=== PATIENT | female | born 1945 | race Caucasian/White ===

== ENCOUNTER 2019-02-28 17:34 | Emergency (ER) | payer MEDICARE, MEDICAID ==
[~2019-02-28] VITALS: Ht 152.4 cm; Wt 34.0 kg
[~2019-02-28 17:34] MED LIST: NORCO 5-325 TA1 EACH PO
[2019-02-28] MEDS ORDERED: NORCO 5-325 TA1 EACH PO (18:21)
[2019-02-28] MEDS ORDERED: ULTRA-LIGHT RO1 EACH MISC (18:21)
== END 2019-02-28 18:43 | disposition home or self-care (01) ==
LOC: ED 17:34
DX: S82.142A Displaced bicondylar fracture of left tibia, initial encounter for closed fracture (principal); W18.39XA Other fall on same level, initial encounter; F17.200 Nicotine dependence, unspecified, uncomplicated
CPT/HCPCS: 73560; 99283-25

== ENCOUNTER 2019-03-16 09:00 | Day surgery (SDC) | payer MEDICARE, MEDICAID ==
[~2019-03-16] VITALS: Ht 152.4 cm; Wt 34.9 kg
--- NOTE | 2019-03-16 06:19 | NUR ---
PT CALLED REQUESTING TO TAKE TYLENOL. GIANA MCCORMACK CRNA APPROVED THIS. PT CALLED BACK AND TOLD SHE CAN TAKE TYLENOL WITH A SMALL SIP OF WATER.
[~2019-03-16 09:00] MED LIST changes: +ULTRA-LIGHT RO1 EACH MISC
--- NOTE | 2019-03-16 13:10 | NUR ---
03/16/19 1310 Loretta Franco 1235 PT ARRIVED IN PACU AWAKE WITH NO C/O'S. BREG BRACE ON L LEG. ICE PLACED ON ARRIVAL. 1247 OXYGEN REMOVED. SATS 94% ON RA. ENCOURAGED COUGH, DEEP BREATHING. 1254 C/O L KNEE PAIN 4/10. FENTANYL 25MCG GIVEN IVP. 1300 NO CHANGE IN PAIN LEVEL. FENTANYL 25MCG GIVEN IVP. REPOSITIONED ICE PACK FOR COMFORT. 1310 NO CHANGE IN PAIN LEVEL. C/O L KNEE PAIN.
--- NOTE | 2019-03-16 14:15 | NUR ---
PT ARRIVED TO FLOOR VIA BED. PT IS AWAKE AND ALERT, VERY HUNGRY AND THIRSTY. TOLERATED JELLO WELL, ORDERED HER SOUP. ICE PACKED PLACED ON LEFT LEG, LEG ELEVATED ON PILLOWS. ZARI WRAP IS CLEAN AND DRY. PT HAD SMALL BM IN PACU. NO NAUSEA. NO ITCHING. WILL OFFER PO PAIN MEDS ONCE LUNCH ARRIVES. NOTIFIED CARMINA ARREGUIN THAT PT WAS IN HER ROOM FOR DIETARY CONSULT.
--- NOTE | 2019-03-16 14:15 | NUR ---
jethro notified of nutrition consult order for patient at this time
--- NOTE | 2019-03-16 17:07 | NUR ---
PT AWAKE AND ALERT. STATES HER PAIN IS WELL CONTROLLED AND WE "ARE TAKING GREAT CARE OF HER." PT HAS ORDERED DINNER.
--- NOTE | 2019-03-16 17:51 | NUR ---
PT ARRIVED TO FLOOR AWAKE AND ALERT FROM PACU. PT'S PAIN WELL CONTROLLED BY PRN PO NORCO. PT UP TO BSC TO VOID/STOOL. PT TOLERATING REG DIET WELL. TOLERATING PO FLUIDS WELL. BRACE ON LEFT LEG. ZARI WRAP, MEPLEX, ABD PAD UNDER ZARI IS C/D/I. TOE TOUCH WB ON LEFT LEG. FORGETFUL, REDIRECTS EASILY. ANXIOUS TO GO HOME. DIETIAN CONSULT COMPLETE, GIVEN OPTIONS FOR HIGHER CALORIE, HIGH PROTIEN. ICE PACKS PLACED.
--- NOTE | 2019-03-16 19:00 | NUR ---
BEDSIDE REPORT RECEIVED FROM OFFGOING RNPAUL. PT TALKING ON PHONE, DOES NOT PARTICIPATE IN REPORT. CALL LIGHT IN REACH.
--- NOTE | 2019-03-16 21:05 | NUR ---
PT ASSESSMENT COMPLETE. PT RATES PAIN 5/10 TO LLE, GOAL FOR 2/10, REQUESTS PAIN MEDICATION. PRN NORCO ADMINISTERED. PT DENIES NAUSEA OR SOB. LUNG SOUNDS DIM IN BILATERAL BASES. PT DENIES COUGH. IS EDUCATION PROVIDED, PT DEMONSTATES APPROPRIATE USE. LLE WITH DRESSING C/D/I. ZARI WRAP AND BRACE IN PLACE. BRUISING PRESENT TO L FOOT AND TOES. PT EXPERIENCING CONTINUED NUMBNESS TO OUTTER ASPECT OF L FOOT. CMS INTACT TO OTHER EXTREMITIES. SCD TO RLE. ICE TO LLE. LLE ELEVATED ON PILLOW. PT ICE WATER REFILLED AND PUDDING PROVIDED. PT ASKING WHAT TIME SHE CAN MAYA HOME TOMORROW. POST OP EDUCATION PROVIDED, QUESTIONS ANSWERED. DENIES FURTHER NEEDS AT THIS TIME. CALL LIGHT IN REACH.
--- NOTE | 2019-03-16 23:05 | NUR ---
PT RESTING IN BED WITH EYES CLOSED, MOUTH OPEN. PT DOES NOT WAKE WHILE NEWCOMER HOSTESS IN DOORWAY. PT APPEARS TO BE SLEEPING. RESPIRATIONS EVEN AND UNLABORED. CALL LIGHT IN REACH.
--- NOTE | 2019-03-16 23:48 | NUR ---
V/S AND I&O TAKEN AND RECORDED. PATIENT DENIES ANY NEEDS AT THE TIME. SIDE TABLE AND CALL LIGHT WITHIN REACH.
--- NOTE | 2019-03-17 01:35 | NUR ---
PT ASSESSMENT COMPLETE. PT FOUND IN ROOM, TEARFUL. STATES "I HAVE BEEN TRYING TO CALL FOR AN HOUR". CALL LIGHT AND BED FOUND TO BE UNPLUGGED FROM WALL. INTERNATIONAL LOGISTICS COORDINATOR PLUGGED BOTH BED AND CALL LIGHT INTO WALL OUTLET, AND BOTH ARE FUNCTIONING APPROPRIATELY AT THIS TIME. INTERNATIONAL LOGISTICS COORDINATOR APOLOGIZES TO PT. PT STATES "IT'S NOT JUST THIS, IT IS THE WHOLE SITUATION" REGARDING FALLING AND REQUIRING SURGERY. SHE STATES "I JUST NEEDED A GOOD CRY". PT REPORTS PAIN, RATES 7/10. PRN NORCO ADMINISTERED. PT DENIES NAUSEA OR SOB. LUNG SOUNDS DIM IN BILATERAL BASES. PT DENIES COUGH. LLE WITH 1 + PITTING EDEMA PRESENT. DRESSING C/D/I. PT REPORTS CONTINUED SLIGHT NUMBNESS TO L FOOT, STATES IT IS IMPROVED FROM EARLIER. BRUISING TO L FOOT UNCHANGED FROM PREVIOUS ASSESSMENT. BRACE AND ICE TO LLE. LLE ELEVATED ON PILLOW. SCD TO RLE. PT PROVIDED WITH CRACKERS AND ICE WATER. PT ASSISTED TO BSC AND BACK TO BED WITH 1 PA AND FWW. PT TOLERATED WELL. PT DENIES FURTHER NEEDS AT THIS TIME. CALL LIGHT WITHIN REACH AND TESTED FOR FUNCTION.
--- NOTE | 2019-03-17 02:30 | NUR ---
PT RESTING IN BED FLAT ON BACK WITH EYES CLOSED AND MOUTH OPEN. GLASSES REMAIN ON PT. RESPIRATIONS EVEN AND UNLABORED. PT DOES NOT WAKE WHILE TOWER LOADER OPERATOR IN ROOM. CALL LIGHT IN REACH.
--- NOTE | 2019-03-17 02:35 | NUR ---
MOISTURIZING LOTION AND CHAL LIP BALM GIVEN PER PATIENT'S REQUEST.
--- NOTE | 2019-03-17 04:31 | NUR ---
PT RESTING IN BED WITH EYES CLOSED, BREATHING THROUGH HER OPENED MOUTH. RESPIRATIONS ARE EVEN AND UNLABORED. PT APPEARS TO BE SLEEPING. DOES NOT WAKE WHILE EARTH SCIENCE PROFESSOR IN ROOM. CALL LIGHT IN REACH.
--- NOTE | 2019-03-17 05:03 | NUR ---
PT UTILIZES CALL LIGHT, REQUESTS TO USE THE BATHROOM. PT ASSISTED TO BSC AND BACK TO BED WITH 1PA. PT TRANSFERED VERY WELL WITH MINIMAL ASSISTANCE. PT ASSESSMENT COMPLETE. PT REPORTS THAT PAIN IS WELL CONTROLLED 11/27. DENIES SOB OR NAUSEA. LUNG SOUNDS DIM IN BILATERAL BASES. PT DENIES COUGH. DRESSING TO E C/D/I. LEG BRACE AND ICE TO E. 1+ PITTING EDEMA PRESENT TO E. SCD PRESENT TO RLE. PT REPORTS WHILE UP TO [facility] NUMBNESS TO PERIAREA THAT SHE HAD NOT PREVIOUSLY NOTICED. STATES THAT PARTS OF HER L FOOT CONTINUE TO BE NUMB WELL. PT THANKFUL FOR CARE. PT BEGINS TO TALK ABOUT HER DOG, BECOMES TEARFUL AND STATES "IT'S SPRING AND I WON'T BE ABLE TO WALK MY DOG. I JUST NEED TO HAVE A GOOD CRY". PT ICE WATER REFILLED, DENIES OTHER NEEDS AT THIS TIME. CALL LIGHT IN REACH.
--- NOTE | 2019-03-17 05:07 | NUR ---
PT RESTED OFF AND ON THIS SHIFT. NORCO FOR PAIN X 2 THIS SHIFT. LUNG SOUNDS DIM IN BASES. IS AT BEDSIDE. BRUISING TO L FOOT/TOES LLE DRESSING: ABD, ZARI WRAP, C/D/I. LEG BRACE AND ICE TO LLE. SCD TO RLE. TOE TOUCH WB LLE. PARTS OF L FOOT AND MAURILIO AREA REMAIN NUMB. CMS INTACT. 4WW. IV SL. UO QS. PT EAGER TO RETURN HOME. TEARFUL AT TIMES. REG DIET, TOLERATING WELL.
--- NOTE | 2019-03-17 07:40 | NUR ---
PT ASSISTED TO THE RESTROOM WITH PROCEDURE TECH. PT REPORTS HER PAIN IN RIGHT KNEE IS TOLERABLE AT THIS TIME. PERSONAL SUPPLIES AND CALL LIGHT WITHIN REACH. PT HAS NO NEEDS AT THIS TIME.
--- NOTE | 2019-03-17 07:45 | NUR ---
Patient was up in her chair. Bed made, fresh water given. Patient dose her own cares. Call light in reach.
[2019-03-17] MEDS ORDERED: HYDROCODON-ACE1 EA11 PO (08:17)
[2019-03-17] MEDS ORDERED: SENNA LAX8.6 MG PO (08:17)
[2019-03-17] MEDS ORDERED: GABAPENTIN300 MG PO (08:17)
[2019-03-17] MEDS ORDERED: ASPIRIN EC325 MG PO (08:18)
--- NOTE | 2019-03-17 09:22 | NUR ---
BOWEN RN SPOKE WITH DR. PORTER REGARDING CONSULT WITH PT FOR POSSIBLE PROLAPSED RECTUM. PT STABLE IN BED AT THIS TIME.
[2019-03-17] MEDS ORDERED: TYLENOL EXTRA500 MG PO (10:00)
--- NOTE | 2019-03-17 11:24 | NUR ---
CALLED INTO PT ROOM FOR AN "APPLE PROTRUDING FROM REAR". ASSESSED PT AND HAS APPEARS TO HAVE RECTAL PROLAPSE. CALLED DR AUGUSTIN AND HE STATED HE WOULD CALL DR PORTER. GERMAN THEN CALLED BACK TO SAY TO GO AHEAD AND REDUCE IT AND HE WOULD BE IN TO SEE PT AFTER HIS COLONOSCOPY. THIS RN REDUCED IT WITHOUT DIFFICULTY, PT TOLERATED WELL. DR PORTER THEN TO FLOOR TO ASSEESS AND MADE FOLLOW UP APPT FOR 4-6 WEEKS POST DISCHARGE.
--- NOTE | 2019-03-17 11:36 | NUR ---
PATIENT WALKED FROM BED TO THE REST ROOM TWICE.1 P ASSIST. FILLED PATIENT ICE WATER AND 3 ICE PACKS. WARM BLANKET WERE GIVEN TWICE IN THE MORNING HR. PATIENT IS BACK IN BED SETTING UP.
--- NOTE | 2019-03-18 07:09 | OR ---
[facility] [address], [place] [address] Signed DATE OF OPERATION: 03/16/2019 SURGEON: Lenka Rosa MD PREOPERATIVE DIAGNOSIS: Left tibial plateau fracture, Schatzker 3. POSTOPERATIVE DIAGNOSIS: Left tibial plateau fracture, Schatzker 3. PROCEDURE PERFORMED: Open reduction and internal fixation of left proximal tibia. HAND CROWN POUNCER: KELLY Buenrostro. Claudine was present and critical for positioning, retraction, and wound closure. ANESTHESIA: General. ESTIMATED BLOOD LOSS: Minimal. TOURNIQUET TIME: 61 minutes. IMPLANTS: Synthes 3.5 mm proximal tibia plate, 3-hole with 7 screws. BRIEF HISTORY: Laxmi is a 73-year-old female, who was knocked down by her dog, suffering a split depression fracture of the tibia. This was displaced by about 6 mm. Although she had extremely soft bone, I felt we could improve the position of this and should do so to allow her to walk without being unstable. Risks and benefits of operative treatment discussed with her. She elected to proceed. Once consent was obtained, she was taken to the operating room. After adequate anesthesia, she was placed on operating table. All downside pressure points well padded. A well-padded proximal leg tourniquet was placed and the leg was prepped and draped in a standard sterile fashion. Leg was exsanguinated using Esmarch bandage. Tourniquet inflated to 200 mmHg. Due to the patient's extremely small stature, we were using a small low-profile plates. The curved Electronically Signed By: LENKA ROSA MD 03/18/19 0709 PATIENT NAME: LAXMI GLASS OPERATIVE REPORT DATE OF : 45 REPORT #: [id number] PHYSICIAN: LENKA ROSA MD PCP: MARVIN LUCIA MD REPORT IS CONFIDENTIAL AND NOT TO BE RELEASED WITHOUT AUTHORIZATION [facility] [address], [place] [address] Signed incision was taken from the anterior tibia across the joint line proximally. The skin was then elevated, again it was extremely dense skin flap. The anterior compartment muscles were then split and elevated. This allowed visualization of the split in the tibia anterolaterally. This was carefully opened to preserve it. This was opened enough to get to the depressed portion of the tibia. Using careful technique with a Manchester elevator and a small osteotome, we freed up as much of the depression portion as we could. We then tamped this slowly back into position. The bone was extremely soft and collapsed into the tamp. We did get it elevated reasonably close to its natural position. Once this was accomplished, we pulled the lateral side back against while holding the subchondral bone in position. A 1.25 K-wire was then passed across . Radiograph showed reasonable reduction, although it was nonanatomic. The plate was then fashioned to the lateral tibia and held with a 3.5 screw distally. It was then well-centered under direct image intensifier guidance. There were some chondral screws were placed with two more screws placed in the tibia distally. Final radiographs showed adequate reduction and placement of plate and screw lengths. The resultant void in the tibia was then filled with DBX bone graft body. The wound was copiously irrigated and closed using #1 Vicryl for the fascia layer, a 2-0 Stratafix for the subcutaneous layer, and richie for the skin. Wound was dressed with Mepilex Ag dressing, Alfonso wrap, and brace. She tolerated the procedure well. All sponge, needle, and instrument counts were correct. Lenka Rosa MD BA/FAUSTOL /[id number] Copies: ~ Electronically Signed By: LENKA ROSA MD 03/18/19 0709 PATIENT NAME: LAXMI GLASS OPERATIVE REPORT DATE OF : 45 REPORT #: [id number] PHYSICIAN: LENKA ROSA MD PCP: MARVIN LUCIA MD REPORT IS CONFIDENTIAL AND NOT TO BE RELEASED WITHOUT AUTHORIZATION
--- NOTE | 2019-03-19 16:19 | CONS ---
[facility] [address], [place] [address] Signed DATE OF CONSULTATION: 03/17/2019 PROBLEM: Rectal prolapse. HISTORY: This 73-year-old white woman underwent a tibial fracture repair by Dr. Tam Rosa yesterday and was anticipating discharge today. She was sitting on the toilet and had a fair amount of straining resulting in rectal prolapse of an apple-sized amount of rectum. She was later put back to bed and reduction of the prolapse was undertaken manually by the nurse and cold pack applied. She has had no further prolapse since then. The patient describes episodic prolapse in the past, but not nearly as much prolapsing mucosa as apparently happened on this occasion. She generally does not have constipation and generally does not have rectal bleeding, though she had a small amount of rectal bleeding today. It is notable that she had a rather significant prolapse a number of years ago, at least once of a similar type similarly with straining. She has never had colonoscopy in the past. Denies family history of colon cancer. She has had childbirth x1. Her surgical history does include hysterectomy as well as recent left knee surgery as noted. REVIEW OF SYSTEMS: She denies any shortness of breath or chest pain. She has no dysphagia, dysuria, hematuria, or diarrhea or constipation generally. She had rectal bleeding x1 with this episode of prolapse. PHYSICAL EXAMINATION: GENERAL: A thin and small white woman, well tanned. Trachea is midline. She has no hoarseness. There is no carotid bruit. She does have a chest wall deformity including pectus excavatum rather significant in its appearance. HEART: Regular without murmur. ABDOMEN: Flat and soft. There is no tenderness or mass. No ascites. RECTAL: The anal examination shows an external hemorrhoid, but no sign of rectal prolapse at this time. Digital rectal examination was not performed. ASSESSMENT AND PLAN: The patient has had episode of rectal prolapse, which is larger than usual and fully Electronically Signed By: KWADWO PORTER MD 03/19/19 1619 PATIENT NAME: ANNA GLASS CONSULTATION DATE OF : 45 REPORT #: [id number] PHYSICIAN: KWADWO PORTER MD PCP: MARVIN LUCIA MD REPORT IS CONFIDENTIAL AND NOT TO BE RELEASED WITHOUT AUTHORIZATION [facility] [address], [place] [address] Signed reduced by the nurse and patient. She will be convalescing regarding her left leg with a splint for at least three months, she tells me. I would like to see her back in the office for further evaluation regarding her rectal prolapse problem. At minimum, she needs colonoscopy based on her age anyway as well as the rectal bleeding, which was probably prolapse related. Her prolapse has been persistent but not as extensive as previously. In most cases, this represents pelvic floor laxity in combination with thin body habitus and so forth. Options of management include expectant care if not a recurring problem versus low anterior resection or in some cases perineal repair. She does not appear to have medical contraindication to operation in any way and there is certainly no emergency situation in which operation should be undertaken at this time. We discussed all this in detail. Kwadwo Porter MD JM/MODL /[id number] cc: MD Tam Shetty MD Copies: MARVIN LUCIA MD, BRADLEY MD ~ Electronically Signed By: KWADWO PORTER MD 03/19/19 1619 PATIENT NAME: ANNA GLASS CONSULTATION DATE OF : 45 REPORT #: [id number] PHYSICIAN: KWADWO PORTER MD PCP: MARVIN LUCIA MD REPORT IS CONFIDENTIAL AND NOT TO BE RELEASED WITHOUT AUTHORIZATION
== END 2019-03-17 13:40 | disposition home or self-care (01) ==
LOC: OPS 09:00 → MS 09:00 → DS 09:00 → OPS 10:45 → DS 10:45 → MS 13:40 → OPS 03-17 13:40
PROVIDERS: Specialist
PROC: 0QSH04Z Reposition Left Tibia with Internal Fixation Device, Open Approach (ICD-10-PCS; principal; 2019-03-16 10:45)
DX: S82.142A Displaced bicondylar fracture of left tibia, initial encounter for closed fracture (principal); F17.210 Nicotine dependence, cigarettes, uncomplicated; Z88.5 Allergy status to narcotic agent; X58.XXXA Exposure to other specified factors, initial encounter
CPT/HCPCS: 01392; 64445; 73560; 76942; 97110; 97161; C1713; J0131; J0690; J1100; J1170; J1885; J2250; J2704; J2795; J3010; J7120